=== PATIENT | male | born 1990 | race Caucasian/White ===

== ENCOUNTER 2024-07-18 12:57 | Outpatient (AMB) | payer OTHER, SELFPAY ==
--- NOTE | 2024-07-18 12:59 | MHC.PC.OV ---
Vital Signs 07/18/24 13:06 Height 5 ft 9 in Weight 158 lb BMI 23.3 BP 136/78 Blood Pressure Location Rt brachial Position Sitting Pulse 63 Pulse Source Pulse Oximeter Pulse Oximetry (%) 98 Intake Visit Reasons: reschedule from 07/06 Intake Note: pt is here for est care, requesting PE Product Trainer Required: No Accompanied by: Self / Same As Patient Allergies No Known Allergies Allergy (Verified 07/18/24 13:00) Medication List - Last Reconciled 07/18/24 by GELACIO Horton No Known Home Meds Tobacco use date assessed: 07/18/24 Dental Screening Dental Screen Date: 07/18/24 Did you have a dental visit in the last 12 months?: Yes Did you have a dental problem in the last 6 months where you did not have access to dental care?: No Was dental information given to patient?: Patient has dentist HPI reschedule from 07/06 HPI Details New pt is here for a PE. Will order labs. Pt c/o pain to his right index finger. He reports pain to his 1st MCP joint with repetitive movements. Will order XR. Pt's blood pressure is mildly elevated. Will have pt monitor BP at home and drop off/send readings. [facility] [place] Surgical History No pertinent past surgical history Family History Mother No problems noted. Father Substance abuse Social History Housing: House Alcohol intake: never Patient Tobacco Use Status: Former Tobacco user e-Cigarette/Vaping Use: Never Used service: No Current occupational status: employed Current occupation: self eployed, own a bread route Current occupational exposures/hazards: No Cognitive needs: No Hearing needs: No Vision needs: No Questionnaire PHQ-9 Over the last 2 weeks, how often have you been bothered by any of the following problems? 1. Little interest or pleasure in doing things: several days 2. Feeling down, depressed, or hopeless: not at all 3. Trouble falling or staying asleep, or sleeping too much: several days 4. Feeling tired or having little energy: several days 5. Poor appetite or overeating: not at all 6. Feeling bad about yourself - or that you are a failure or have let yourself or your family down: not at all 7. Trouble concentrating on things, such as reading the newspaper or watching television: several days 8. Moving or speaking so slowly that other people could have noticed. Or the opposite - being so fidgety or restless that you have been moving around a lot more than usual: not at all 9. Thoughts that you would be better off or of hurting yourself in some way: not at all Total score: 4 Depression Screening Interpretation: Negative Depression Screening Done: Yes 97410 - PHQ-9 Billing: Yes Source: Developed by Drs. Fer Cuenca, Ayla Frank, Magdy Devi and colleagues, with an educational luis alberto from [employer]. Thrive Questionnaire Date Thrive assessed: 07/18/24 I am a: Patient What is your living situation today?: I have a steady place to live Within the past 12 months, did the food you bought not last and you didn't have the money to get more?: Never true Within the past 12 months, did you worry whether your food would run out before you got money to buy more?: Never true Do you have trouble paying for medicines?: No Do you have trouble getting transportation to medical appointments?: No Do you have trouble paying your heating and electricity bill?: No Do you have trouble taking care of your child, family member or friend?: No Do you have trouble with day-to-day activities such as bathing, preparing meals, shopping, managing finances, etc.?: No Are you currently unemployed and looking for a job?: No Are you interested in more education?: No Please select the resources that you would like help with: None Currently or been in a relationship where the following occur: No concerns reported THRIVE Score: 0 AUDIT C Alcohol Use Questionnaire (AUDIT-C) 1. How often do you have a drink containing alcohol?: Never 3. How often do you have six or more drinks on one occasion?: Never Total Score: 0 Score Reviewed/Action Taken: Yes SABINE-7 AMB Questionnaire SABINE-7 Date SABINE - 7 assessed: 07/18/24 Feeling nervous, anxious, or on edge: 1 = Several days Not being able to stop or control worryin = Several days Worrying too much about different things: 0 = Not at all Trouble relaxin = Not at all Being so restless that it is hard to sit still: 0 = Not at all Becoming easily annoyed or irritable: 0 = Not at all Feeling afraid as if something awful might happen: 1 = Several days Total SABINE-7 score (0-4 normal; 5-9 mild; 10-14 moderate; 15-21 severe): 3 Source: Developed by Drs. Fer Cuenca, Ayla Frank, Magdy Devi and colleagues, with an educational luis alberto from [employer]. SABINE-7 Assessment Billing SABINE-7 Assessment Tool: SABINE-7 Assessment 14752 Review of Systems Const Denies chills and Denies fever(s) Eyes Denies blurry vision ENT Denies vertigo, Denies dizziness and Denies sore throat Card Denies chest pain at rest, Denies chest pain with activity, Denies diaphoresis, Denies dyspnea and Denies dyspnea on exertion Resp Denies cough, Denies dyspnea, Denies dyspnea on exertion and Denies wheezing GI Denies abdominal pain, Denies melena, Denies hematochezia, Denies constipation, Denies diarrhea and Denies loose stools Denies hematuria Musc Denies numbness and Denies tingling Skin/Breast Denies lesions Neuro Denies vertigo, Denies dizziness, Denies numbness and Denies tingling Psych Denies anxiety, Denies depression, Denies homicidal ideation, Denies suicidal ideation and Denies other (substance abuse) Aller/Immun Denies wheezing Physical exam (Primary Care) Vital Signs: Last Vital Signs Pulse 63 07/18/24 13:06 BP 136/78 07/18/24 13:06 Pulse Ox 98 07/18/24 13:06 BMI result Body Mass Index 23.3 Tobacco/Smoking Status: Tobacco use Status Tobacco use date assessed 07/18/24 07/18/24 13:01 Patient Tobacco Use Status Former Tobacco user 07/18/24 13:10 e-Cigarette/Vaping Use Never Used 07/18/24 13:01 PHQ-9: PHQ-9 Score PHQ-9: Total score 4 07/18/24 13:01 Depression Screening Interpretation: Negative Thrive Assessment: Date of Thrive Assessment Date Thrive assessed 07/18/24 07/18/24 13:10 Currently or been in a relationship where the following occur: No concerns reported Const General: cooperative Nutritional Appearance: well nourished Orientation/consciousness: patient oriented x3 HENMT Head: Yes normal to inspection, Yes normocephalic and Yes atraumatic Ears: TM's normal bilaterally Eyes General: appearance normal, both eyes and all related structures Alignment and Position: alignment normal and position normal Neck Neck: Yes normal visual inspection, Yes no lymphadenopathy and Yes supple Resp Effort & Inspection: normal respiratory effort Auscultation: clear to auscultation bilaterally Cardio Rate: regular rate Rhythm: regular rhythm Heart sounds: S1 normal heart sound present, S2 normal heart sound present and no murmurs GI Palpation (GI): Soft to palpation and nontender Auscultation: normal bowel sounds Male General Exam: Yes normal external exam Penis: normal penis Scrotum: scrotum normal, testes descended bilaterally and no inguinal hernias Testes: no testicular mass Skin Rashes: no rashes Neuro General: patient oriented x3, moves all extremities, no focal motor deficits and deep tendon reflexes 2+ bilaterally Romberg Test: Negative Extrem Other: no tenderness or swelling of right index finger Psych Appearance: grossly normal Mental Status: mental status grossly normal Speech and movement: Normal speech and movement present Affect: normal affect Attitude: cooperative Thought process: Normal thought process present Thought content: Normal thought content present Insight: Good insight present (Psych) Judgement: Good judgement present (Psych) Coding Level of Care Code New Pt Prev Care 18-39yr([id number] Diagnoses Physical exam Z00.00 Finger pain M79.646 Additional Codes SABINE-7 Assessment Billing - SABINE-7 Assessment Tool: SABINE-7 Assessment 31972 ([id number]) Assessment & Plan Assessment & Plan (1) Physical exam: Code(s): Z00.00 - Encounter for general adult medical examination without abnormal findings Category: Medical Plan: Labs ordered (2) Finger pain: Code(s): M79.646 - Pain in unspecified finger(s) Category: Medical Plan: XR Plan The patient agreed to the use of a medical biller/coder for this encounter. Scribed for GELACIO Shahid by Monika Igor, medical biller/coder, on 07/18/2024 at 13:20 EST. Orders: Orders Comprehensive [place]. Panel Fast Today Z00.00 - Encounter for general adult medical examination without abnormal findings UA CC w/rflx Micro + Cult Today Z00.00 - Encounter for general adult medical examination without abnormal findings XR finger RT min 2V Today M79.646 - Pain in unspecified finger(s) Complete Blood Count Auto Diff Today Z00.00 - Encounter for general adult medical examination without abnormal findings TSH reflex Free T4 Today Z00.00 - Encounter for general adult medical examination without abnormal findings Lipid Panel Today Z00.00 - Encounter for general adult medical examination without abnormal findings
[2024-07-18 13:06] VITALS: BP 136/78; PULSE 63; O2SAT 98; BMI 23.3
== END 2024-07-18 17:24 | disposition home or self-care (01) ==
PROVIDERS: PCP Nurse Practitioner Family; Visit Provider Nurse Practitioner Family
DX: Z00.00 Encounter for general adult medical examination without abnormal findings (principal); M79.646 Pain in unspecified finger(s)

== ENCOUNTER → 2024-07-18 12:57 | Outpatient (BNVA) | payer OTHER, SELFPAY | PROVIDERS: PCP Nurse Practitioner Family; Visit Provider Nurse Practitioner Family | DX: Z00.01 Encounter for general adult medical examination with abnormal findings (principal); M79.644 Pain in right finger(s) | CPT/HCPCS: 96127 ==